=== PATIENT | female | born 1980 | race Caucasian/White ===

== ENCOUNTER 2016-09-26 11:22 | Day surgery (SDC) | payer OTHER ==
[~2016-09-26] VITALS: Ht 168.9 cm; Wt 78.9 kg
[~2016-09-26 11:22] MED LIST: ATARAX,VISTARIL25 MG PO; ATARAX10 MG PO; CIPRO500 MG PO; ENDOCET 5-3251 EACH PO; ESCITALOPRAM OX20 MG PO; IBUPROFEN800 MG PO; LEXAPRO10 MG PO; LORCET 5-325 M1 EACH PO; MOBIC7.5 MG PO; NAPROSYN375 MG PO; PEN-VEE K,VEET500 MG PO; PRENATAL TABLE1 EAC3 PO; TYLENOL EXTRA500 MG PO; ULTRAM50 MG PO
== END 2016-09-26 13:11 | disposition home or self-care (01) ==
LOC: PAIN 11:22 → SDC 13:00 → PAIN 13:00
DX: M47.816 Spondylosis without myelopathy or radiculopathy, lumbar region (principal); F41.9 Anxiety disorder, unspecified; M51.26 Other intervertebral disc displacement, lumbar region; M79.1 Myalgia; J30.9 Allergic rhinitis, unspecified; G89.29 Other chronic pain; E66.3 Overweight; Z68.27 Body mass index [BMI] 27.0-27.9, adult
CPT/HCPCS: J1030; J2250; J3010; S0020

== ENCOUNTER 2016-10-03 10:33 | Day surgery (SDC) | payer OTHER ==
[~2016-10-03] VITALS: Ht 168.9 cm; Wt 78.9 kg
== END 2016-10-03 13:24 | disposition home or self-care (01) ==
LOC: PAIN 10:33 → SDC 11:45 → PAIN 11:45
DX: M51.16 Intervertebral disc disorders with radiculopathy, lumbar region (principal); M51.06 Intervertebral disc disorders with myelopathy, lumbar region; F41.8 Other specified anxiety disorders; E66.3 Overweight; Z68.27 Body mass index [BMI] 27.0-27.9, adult; Z79.891 Long term (current) use of opiate analgesic; Z79.899 Other long term (current) drug therapy
CPT/HCPCS: J1030; J2250; J3010; S0020

== ENCOUNTER 2016-10-20 10:05 | Emergency (ER) | payer OTHER ==
[~2016-10-20] VITALS: Ht 167.6 cm; Wt 82.3 kg
[2016-10-20 11:01] LABS: ADD MIUA? YES; BILIRUBIN NEGATIVE; BLOOD NEGATIVE; COLOR YELLOW ((YELLOW)); GLUCOSE (STRIP) NEGATIVE; KETONES NEGATIVE; LEUKOCYTES LARGE; NITRITE NEGATIVE; PROTEIN (STRIP) 100; UROBILINOGEN 0.2 MG/DL (0.2-1.0)
[2016-10-20 11:15] LABS: BACTERIA RARE /HPF; EPITHELIAL CELLS 1+ /HPF; MUCUS 2+ /LPF; RED BLOOD CELLS 0-5 /HPF (0-5); WHITE BLOOD CELLS 30-40 /HPF (0-5)
[2016-10-20 11:33] LABS: HEMATOCRIT 30.6 % (36.0-46.0); MCH 20.2 PG (29.0-34.0); MCHC 28.8 G/DL (30.0-36.0); MCV 70.3 FL (83-99); MEAN PLAT.VOLUME 11.4 uM^3 (9.5-12.4); PLATELET COUNT 246 K/uL (156-360); RBC DIS.WIDTH-CV 19.3 % (11.8-14.6); RBC DIS.WIDTH-SD 48.4 % (39-53); RED BLOOD COUNT 4.35 M/uL (3.80-5.20); WHITE BLOOD COUNT 4.9 K/uL (4.1-10.2)
[2016-10-20 11:38] LABS: CHLORIDE 107 mEq/L (99-109); POTASSIUM 3.5 mEq/L (3.7-5.4); SODIUM 136 mEq/L (136-147)
[2016-10-20 11:40] LABS: GLUCOSE 106 mg/dL (70-99)
[2016-10-20 11:41] LABS: ANION GAP 7 MEQ/L (2-14)
[2016-10-20 11:42] LABS: TOTAL BILIRUBIN 0.3 mg/dL (0.0-1.0)
[2016-10-20 11:43] LABS: ALKALINE PHOSPHATASE 84 IU/L (3-129)
[2016-10-20 11:44] LABS: GFR ESTIMATE (CALCULATED) > 59 mL/min/
[2016-10-20 11:45] LABS: UREA NITROGEN (BUN) 14 mg/dL (9-23)
[2016-10-20 11:47] LABS: LIPASE 18 U/L (1.0-51.0)
[2016-10-20 11:54] LABS: QUANTITATIVE HCG < 4.0 MIU/ML
[2016-10-20 12:30] VITALS: BP 141/80
[2016-10-20] MEDS ORDERED: OMEPRAZOLE40 M1 PO (12:35)
[2016-10-20] MEDS ORDERED: KEFLEX500 MG PO (12:35)
== END 2016-10-20 12:30 | disposition home or self-care (01) ==
LOC: EME 10:05
PROVIDERS: Physician Assistant
DX: N39.0 Urinary tract infection, site not specified (principal); R10.13 Epigastric pain
CPT/HCPCS: 74022; 76705; 80053; 81003; 83690; 84702; 85027; 87086; 99281; 99284

== ENCOUNTER 2016-11-27 11:34 | Day surgery (SDC) | payer OTHER ==
[~2016-11-27] VITALS: Ht 167.6 cm; Wt 79.4 kg
[~2016-11-27 11:34] MED LIST changes: +KEFLEX500 MG PO; +OMEPRAZOLE40 M1 PO
== END 2016-11-27 13:58 | disposition home or self-care (01) ==
LOC: PAIN 11:34 → SDC 12:45 → PAIN 12:45
PROC: 015B3ZZ Destruction of Lumbar Nerve, Percutaneous Approach (ICD-10-PCS; principal; 2016-11-27)
DX: M47.26 Other spondylosis with radiculopathy, lumbar region (principal); F41.9 Anxiety disorder, unspecified; G89.29 Other chronic pain; M51.26 Other intervertebral disc displacement, lumbar region; I10 Essential (primary) hypertension; F32.9 Major depressive disorder, single episode, unspecified; M19.90 Unspecified osteoarthritis, unspecified site
CPT/HCPCS: J1030; J2250; J3010; S0020

== ENCOUNTER 2016-12-04 12:35 | Day surgery (SDC) | payer OTHER | END 2016-12-04 15:03 | disposition home or self-care (01) | LOC: PAIN 12:35 → SDC 13:45 → PAIN 15:03 | DX: M47.26 Other spondylosis with radiculopathy, lumbar region (principal); M54.42 Lumbago with sciatica, left side; G89.29 Other chronic pain; F41.8 Other specified anxiety disorders; E66.3 Overweight; Z79.891 Long term (current) use of opiate analgesic | CPT/HCPCS: J1030; J2250; J3010; S0020 ==

== ENCOUNTER 2017-02-02 13:08 | Emergency (ER) | payer OTHER ==
[~2017-02-02] VITALS: Ht 168.9 cm; Wt 82.1 kg
[2017-02-02 16:32] VITALS: BP 108/81
== END 2017-02-02 16:36 | disposition home or self-care (01) ==
LOC: EME 13:08
DX: H10.9 Unspecified conjunctivitis (principal)
CPT/HCPCS: 99281; 99283

== ENCOUNTER 2017-02-18 02:46 | Emergency (ER) | payer OTHER ==
[~2017-02-18] VITALS: Ht 167.6 cm; Wt 82.3 kg
[2017-02-18] MEDS ORDERED: MOTRIN800 MG PO (04:47)
[2017-02-18 05:07] VITALS: BP 115/73
== END 2017-02-18 05:07 | disposition home or self-care (01) ==
LOC: EME 02:46
DX: S93.401A Sprain of unspecified ligament of right ankle, initial encounter (principal); X50.1XXA Overexertion from prolonged static or awkward postures, initial encounter
CPT/HCPCS: 73610

== ENCOUNTER 2017-02-24 10:30 | Emergency (ER) | payer OTHER ==
[~2017-02-24] VITALS: Ht 165.1 cm; Wt 81.0 kg
[~2017-02-24 10:30] MED LIST changes: +MOTRIN800 MG PO
[2017-02-24 11:08] LABS: ADD MIUA? YES; BILIRUBIN NEGATIVE; BLOOD SMALL; COLOR YELLOW ((YELLOW)); GLUCOSE (STRIP) NEGATIVE; KETONES 20; LEUKOCYTES SMALL; NITRITE NEGATIVE; PROTEIN (STRIP) 30; SPECIFIC GRAVITY 1.024 (1.000-1.030)
[2017-02-24 11:18] LABS: CHLORIDE 108 mEq/L (99-109); POTASSIUM 3.2 mEq/L (3.7-5.4); SODIUM 143 mEq/L (136-147)
[2017-02-24 11:19] LABS: GLUCOSE 99 mg/dL (70-99)
[2017-02-24 11:21] LABS: ANION GAP 11 MEQ/L (2-14)
[2017-02-24 11:23] LABS: GFR ESTIMATE (CALCULATED) > 59 mL/min/
[2017-02-24 11:24] LABS: UREA NITROGEN (BUN) 11 mg/dL (9-23)
[2017-02-24 11:25] LABS: HEMATOCRIT 26.9 % (36.0-46.0); MCH 18.8 PG (29.0-34.0); MCHC 27.5 G/DL (30.0-36.0); MCV 68.3 FL (83-99); MEAN PLAT.VOLUME 10.9 uM^3 (9.5-12.4); PLATELET COUNT 269 K/uL (156-360); RBC DIS.WIDTH-CV 18.6 % (11.8-14.6); RBC DIS.WIDTH-SD 45.4 % (39-53); RED BLOOD COUNT 3.94 M/uL (3.80-5.20); WHITE BLOOD COUNT 3.3 K/uL (4.1-10.2)
[2017-02-24 11:31] LABS: QUANTITATIVE HCG < 4.0 MIU/ML
[2017-02-24 11:34] LABS: EPITHELIAL CELLS 1+ /HPF; MUCUS 1+ /LPF
[2017-02-24 11:35] LABS: BACTERIA 1+ /HPF; CASTS NONE SEEN /LPF; CRYSTALS NONE SEEN; RED BLOOD CELLS 0-5 /HPF (0-5); WHITE BLOOD CELLS 0-5 /HPF (0-5)
[2017-02-24 12:00] VITALS: BP 130/70
== END 2017-02-24 12:00 | disposition home or self-care (01) ==
LOC: EME 10:30
PROVIDERS: Nurse Practitioner Family
DX: F43.0 Acute stress reaction (principal)
CPT/HCPCS: 80048; 81003; 84702; 85027; 99281; 99284

== ENCOUNTER 2017-03-25 04:16 | Observation (INO) | payer OTHER ==
[~2017-03-25] VITALS: Ht 165.1 cm; Wt 79.2 kg
[2017-03-25] VITALS (9 sets, daily range): BP systolic 106–151; BP diastolic 57–666
[2017-03-25 05:01] LABS: HEMATOCRIT 25.4 % (36.0-46.0); MCH 18.5 PG (29.0-34.0); MCV 66.1 FL (83-99); MEAN PLAT.VOLUME 10.9 uM^3 (9.5-12.4); PLATELET COUNT 275 K/uL (156-360); RBC DIS.WIDTH-CV 18.6 % (11.8-14.6); RBC DIS.WIDTH-SD 43.7 % (39-53); RED BLOOD COUNT 3.84 M/uL (3.80-5.20); WHITE BLOOD COUNT 3.7 K/uL (4.1-10.2)
[2017-03-25 05:11] LABS: CHLORIDE 106 mEq/L (99-109); POTASSIUM 3.7 mEq/L (3.7-5.4); SODIUM 139 mEq/L (136-147)
[2017-03-25 05:13] LABS: GLUCOSE 99 mg/dL (70-99)
[2017-03-25 05:14] LABS: ANION GAP 8 MEQ/L (2-14)
[2017-03-25 05:15] LABS: TOTAL BILIRUBIN 0.4 mg/dL (0.0-1.0)
[2017-03-25 05:16] LABS: TROP-I INTERPRETATION NEGATIVE; TROPONIN-I < 0.01 ng/mL (0.0-0.30)
[2017-03-25 05:17] LABS: ALKALINE PHOSPHATASE 81 IU/L (3-129); GFR ESTIMATE (CALCULATED) > 59 mL/min/
[2017-03-25 05:18] LABS: UREA NITROGEN (BUN) 14 mg/dL (9-23)
[2017-03-25 05:20] LABS: LIPASE 17 U/L (1.0-51.0)
[2017-03-25 05:26] LABS: QUANTITATIVE HCG < 4.0 MIU/ML
[2017-03-25 05:41] LABS: EOSINOPHIL (%) 2.2 % (0-5); EOSINOPHIL COUNT 0.1 K/uL (0-0.3); IMMATURE GRANULOCYTE (%) 0.3 % (0.0-0.7); INSTRUMENT ABS NEUTROPHIL CT 1.7 K/uL; LYMPHOCYTE COUNT 1.6 K/uL (1.0-2.8); MONOCYTE (%) 7.8 % (3-12); MONOCYTE COUNT 0.3 K/uL (0-0.8); NEUTROPHIL (%) 46.2 % (45-76); NEUTROPHIL COUNT 1.7 K/uL (1.8-6.4)
[2017-03-25 11:03] LABS: IRON 14 MCG/DL (35-150)
[2017-03-25] MEDS ORDERED: FERROUS SULFAT325 MG PO (11:14)
[2017-03-25 11:51] LABS: FERRITIN 5 NG/ML (10-291)
[2017-03-25] MEDS ORDERED: AFRIN,GENASAL D15 ML BOTH NARES (12:18)
[2017-03-25] MEDS ORDERED: NORCO 5/3251 TABLET PO (12:18)
[2017-03-25 13:09] LABS: HEMATOCRIT 29.4 % (36.0-46.0); MCH 19.8 PG (29.0-34.0); MCHC 28.9 G/DL (30.0-36.0); MCV 68.4 FL (83-99); MEAN PLAT.VOLUME 10.8 uM^3 (9.5-12.4); PLATELET COUNT 264 K/uL (156-360); RBC DIS.WIDTH-CV 20.2 % (11.8-14.6); RBC DIS.WIDTH-SD 48.7 % (39-53); WHITE BLOOD COUNT 3.8 K/uL (4.1-10.2)
[2017-03-25 13:24] LABS: PROLACTIN 14.7 NG/ML
== END 2017-03-25 14:25 | disposition home or self-care (01) ==
LOC: EME 04:16 → EDOF 06:20 → ENRESERV 06:21 → 5WEST 07:08
PROVIDERS: Emergency Medicine; Nurse Practitioner Adult Health; Physician Assistant Medical
PROC: 30233N1 Transfusion of Nonautologous Red Blood Cells into Peripheral Vein, Percutaneous Approach (ICD-10-PCS; principal; 2017-03-25)
DX: D50.9 Iron deficiency anemia, unspecified (principal); R07.81 Pleurodynia; D72.819 Decreased white blood cell count, unspecified; R10.11 Right upper quadrant pain; R10.31 Right lower quadrant pain; N83.202 Unspecified ovarian cyst, left side
CPT/HCPCS: 71020; 74176; 80053; 81003; 82607; 82728; 83540; 83690; 84146; 84443; 84466; 84484; 84702; 85025; 85027; 86850; 86900; 86901; 86920; 93005; G0378; P9016

== ENCOUNTER 2017-04-04 17:23 | Emergency (ER) | payer OTHER ==
[~2017-04-04] VITALS: Ht 165.1 cm; Wt 80.1 kg
[~2017-04-04 17:23] MED LIST changes: +AFRIN,GENASAL D15 ML BOTH NARES; +FERROUS SULFAT325 MG PO; +NORCO 5/3251 TABLET PO
[2017-04-04 18:11] LABS: POINT-OF-CARE METER ID UU13113800
[2017-04-04 19:31] VITALS: BP 162/87
== END 2017-04-04 19:34 | disposition home or self-care (01) ==
LOC: EME 17:23
DX: M79.1 Myalgia (principal); M79.601 Pain in right arm
CPT/HCPCS: 82948; 93971; 99281; 99283

== ENCOUNTER 2017-04-08 20:41 | Inpatient (IN) | payer OTHER ==
[~2017-04-08] VITALS: Ht 165.1 cm; Wt 82.0 kg
[2017-04-08 21:18] LABS: HEMATOCRIT 35.1 % (36.0-46.0); MCH 21.5 PG (29.0-34.0); MCHC 29.6 G/DL (30.0-36.0); MCV 72.5 FL (83-99); MEAN PLAT.VOLUME 11.5 uM^3 (9.5-12.4); PLATELET COUNT 195 K/uL (156-360); RBC DIS.WIDTH-CV 24.1 % (11.8-14.6); RBC DIS.WIDTH-SD 59.1 % (39-53); RED BLOOD COUNT 4.84 M/uL (3.80-5.20); WHITE BLOOD COUNT 4.2 K/uL (4.1-10.2)
[2017-04-08 21:25] LABS: CHLORIDE 106 mEq/L (99-109); POTASSIUM 3.8 mEq/L (3.7-5.4); SODIUM 139 mEq/L (136-147)
[2017-04-08 21:27] LABS: GLUCOSE 97 mg/dL (70-99)
[2017-04-08 21:28] LABS: ANION GAP 12 MEQ/L (2-14)
[2017-04-08 21:29] LABS: TOTAL BILIRUBIN 0.3 mg/dL (0.0-1.0)
[2017-04-08 21:30] LABS: ALKALINE PHOSPHATASE 90 IU/L (3-129)
[2017-04-08 21:31] LABS: GFR ESTIMATE (CALCULATED) > 59 mL/min/
[2017-04-08 21:32] LABS: UREA NITROGEN (BUN) 11 mg/dL (9-23)
[2017-04-08 21:40] LABS: QUANTITATIVE HCG < 4.0 MIU/ML
[2017-04-08 22:21] LABS: LIPASE 28 U/L (1.0-51.0)
[2017-04-09 03:00] VITALS: BP 117/68
[2017-04-09 06:08] LABS: MCH 20.5 PG (29.0-34.0); MCHC 28.2 G/DL (30.0-36.0); MCV 72.7 FL (83-99); PLATELET COUNT 170 K/uL (156-360); RBC DIS.WIDTH-CV 24.2 % (11.8-14.6); RBC DIS.WIDTH-SD 59.1 % (39-53); RED BLOOD COUNT 4.54 M/uL (3.80-5.20); WHITE BLOOD COUNT 6.5 K/uL (4.1-10.2)
[2017-04-09 06:32] LABS: ANION GAP 6 MEQ/L (2-14); CHLORIDE 109 MEQ/L (99-109); GFR ESTIMATE (CALCULATED) > 59 mL/min/; GLUCOSE 97 mg/dL (70-99); POTASSIUM 4.2 MEQ/L (3.7-5.4); SAMPLE HEMOLYSIS CHECK 0; SAMPLE ICTERIC CHECK 0; SAMPLE LIPEMIA CHECK 0; SODIUM 140 MEQ/L (136-147); UREA NITROGEN (BUN) 8 mg/dL (9-23)
[2017-04-09 08:00] VITALS: BP 111/68
[2017-04-09] MEDS ORDERED: ULTRAM50 MG PO (11:26)
== END 2017-04-09 12:37 | disposition home or self-care (01) | DRG 343 ==
LOC: EME 20:41 → 2SOUTH 23:51 → ENRESERV 23:52 → EME 04-09 00:37 → ENRESERV 04-09 01:02 → 2EASTP 04-09 02:48
PROVIDERS: Surgery
PROC: 0DTJ4ZZ Resection of Appendix, Percutaneous Endoscopic Approach (ICD-10-PCS; principal; 2017-04-09)
DX: K35.80 Unspecified acute appendicitis (principal); D64.9 Anemia, unspecified; F41.9 Anxiety disorder, unspecified; F32.9 Major depressive disorder, single episode, unspecified; G47.9 Sleep disorder, unspecified; E66.9 Obesity, unspecified; Z68.30 Body mass index [BMI] 30.0-30.9, adult; Z23 Encounter for immunization
CPT/HCPCS: 74177; 80048; 80053; 81003; 83690; 84702; 85027; 88304; 88305; 90686; 93971; 99281; 99285; J1170; J3010; J7040; J7120; S0074

== ENCOUNTER 2017-05-08 13:51 | Emergency (ER) | payer OTHER ==
[~2017-05-08] VITALS: Ht 165.1 cm; Wt 80.6 kg
[2017-05-08 15:11] LABS: CHLORIDE 107 mEq/L (99-109); POTASSIUM 4.1 mEq/L (3.7-5.4); SODIUM 139 mEq/L (136-147)
[2017-05-08 15:13] LABS: GLUCOSE 101 mg/dL (70-99)
[2017-05-08 15:16] LABS: CREATININE 0.7 mg/dL (0.6-1.3); GFR ESTIMATE (CALCULATED) > 59 mL/min/
[2017-05-08 15:17] LABS: UREA NITROGEN (BUN) 15 mg/dL (9-23)
[2017-05-08 15:21] LABS: BASOPHIL (%) 0.5 % (0-1); EOSINOPHIL COUNT 0.2 K/uL (0-0.3); HEMATOCRIT 38.4 % (36.0-46.0); HEMOGLOBIN 11.9 G/DL (11.9-15.5); IMMATURE GRANULOCYTE (%) 0.3 % (0.0-0.7); LYMPHOCYTE (%) 31.4 % (15-42); LYMPHOCYTE COUNT 1.3 K/uL (1.0-2.8); MCH 24.4 PG (29.0-34.0); MCV 78.7 FL (83-99); MONOCYTE (%) 7.8 % (3-12); MONOCYTE COUNT 0.3 K/uL (0-0.8); NEUTROPHIL COUNT 2.2 K/uL (1.8-6.4); PLATELET COUNT 166 K/uL (156-360); RED BLOOD COUNT 4.88 M/uL (3.80-5.20)
[2017-05-08 15:42] LABS: ANISOCYTOSIS 2+; HYPOCHROMASIA 1+; MICROCYTOSIS 2+; OVALOCYTES 1+; PLAT.SUFFICIENCY ADEQUATE
[2017-05-08 16:47] LABS: QUANTITATIVE HCG < 4.0 MIU/ML
[2017-05-08 17:30] VITALS: BP 130/77
== END 2017-05-08 18:00 | disposition home or self-care (01) ==
LOC: EME 13:51
PROVIDERS: Nurse Practitioner Family
DX: R53.83 Other fatigue (principal); D64.9 Anemia, unspecified; F41.9 Anxiety disorder, unspecified; F32.9 Major depressive disorder, single episode, unspecified
CPT/HCPCS: 80048; 84702; 85025; 99281; 99284

== ENCOUNTER 2017-05-12 12:10 | Emergency (ER) | payer OTHER ==
[~2017-05-12] VITALS: Ht 165.1 cm; Wt 81.9 kg
[2017-05-12] MEDS ORDERED: TESSALON200 MG PO (14:34)
[2017-05-12 14:59] VITALS: BP 123/87
== END 2017-05-12 14:59 | disposition home or self-care (01) ==
LOC: EME 12:10
DX: J06.9 Acute upper respiratory infection, unspecified (principal); F32.9 Major depressive disorder, single episode, unspecified; Z88.8 Allergy status to other drugs, medicaments and biological substances
CPT/HCPCS: 99281; 99283

== ENCOUNTER 2017-07-31 02:24 | Emergency (ER) | payer OTHER ==
[~2017-07-31] VITALS: Ht 165.1 cm; Wt 85.7 kg
[~2017-07-31 02:24] MED LIST changes: +TESSALON200 MG PO
[2017-07-31 03:12] LABS: HEMOGLOBIN 12.6 G/DL (11.9-15.5); MCH 27.7 PG (29.0-34.0); MCHC 33.2 G/DL (30.0-36.0); MCV 83.5 FL (83-99); PLATELET COUNT 185 K/uL (156-360); RBC DIS.WIDTH-CV 13.6 % (11.8-14.6); RBC DIS.WIDTH-SD 40.5 % (39-53); RED BLOOD COUNT 4.55 M/uL (3.80-5.20); WHITE BLOOD COUNT 4.8 K/uL (4.1-10.2)
[2017-07-31 03:25] LABS: ALBUMIN 3.9 g/dL (3.2-4.8)
[2017-07-31 03:26] LABS: CHLORIDE 105 mEq/L (99-109); POTASSIUM 3.9 mEq/L (3.7-5.4); SODIUM 137 mEq/L (136-147)
[2017-07-31 03:28] LABS: GLUCOSE 112 mg/dL (70-99); TOTAL PROTEIN 8.4 g/dL (6.4-8.3)
[2017-07-31 03:30] LABS: TOTAL BILIRUBIN 0.3 mg/dL (0.0-1.0)
[2017-07-31 03:31] LABS: ALKALINE PHOSPHATASE 87 IU/L (3-129)
[2017-07-31 03:32] LABS: CREATININE 0.8 mg/dL (0.6-1.3); GFR ESTIMATE (CALCULATED) > 59 mL/min/
[2017-07-31 03:33] LABS: AST (GOT) 33 IU/L (2-34); UREA NITROGEN (BUN) 19 mg/dL (9-23)
[2017-07-31 03:35] LABS: ALT (GPT) 26 IU/L (3-49)
[2017-07-31 03:42] LABS: QUANTITATIVE HCG < 4.0 MIU/ML
[2017-07-31 06:38] LABS: APPEARANCE CLOUDY ((CLEAR)); BILIRUBIN NEGATIVE; BLOOD LARGE; COLOR YELLOW ((YELLOW)); GLUCOSE (STRIP) NEGATIVE; KETONES NEGATIVE; LEUKOCYTES LARGE; NITRITE NEGATIVE; PROTEIN (STRIP) 30; SPECIFIC GRAVITY 1.021 (1.000-1.030); UROBILINOGEN 0.2 MG/DL (0.2-1.0)
[2017-07-31 06:56] LABS: BACTERIA 1+ /HPF; EPITHELIAL CELLS 1+ /HPF; MUCUS 2+ /LPF; RED BLOOD CELLS 15-20 /HPF (0-5); UCUL ADDED? YES
[2017-07-31 09:03] LABS: BENZODIAZEPINES, URINE SCREEN Negative (200 ng/mL)
[2017-07-31 11:11] VITALS: BP 122/81
== END 2017-07-31 11:10 | disposition home or self-care (01) ==
LOC: EME 02:24
PROVIDERS: Emergency Medicine
DX: R42 Dizziness and giddiness (principal); R07.89 Other chest pain; N39.0 Urinary tract infection, site not specified
CPT/HCPCS: 71045; 80053; 80306 90; 81003; 84702; 85027; 85379; 87086; 93005; 99281; 99285; J7030

== ENCOUNTER 2017-08-11 02:43 | Emergency (ER) | payer OTHER ==
[~2017-08-11] VITALS: Ht 165.1 cm; Wt 92.1 kg
[2017-08-11 03:18] LABS: HEMATOCRIT 34.6 % (36.0-46.0); HEMOGLOBIN 11.9 G/DL (11.9-15.5); MCH 28.8 PG (29.0-34.0); MCHC 34.4 G/DL (30.0-36.0); MCV 83.8 FL (83-99); PLATELET COUNT 172 K/uL (156-360); RBC DIS.WIDTH-CV 13.8 % (11.8-14.6); RBC DIS.WIDTH-SD 42.2 % (39-53); RED BLOOD COUNT 4.13 M/uL (3.80-5.20); WHITE BLOOD COUNT 3.5 K/uL (4.1-10.2)
[2017-08-11 03:30] LABS: CHLORIDE 110 mEq/L (99-109); SODIUM 143 mEq/L (136-147)
[2017-08-11 03:31] LABS: GLUCOSE 100 mg/dL (70-99)
[2017-08-11 03:35] LABS: CREATININE 0.7 mg/dL (0.6-1.3); GFR ESTIMATE (CALCULATED) > 59 mL/min/
[2017-08-11 03:36] LABS: UREA NITROGEN (BUN) 18 mg/dL (9-23)
[2017-08-11 03:38] LABS: LIPASE 24 U/L (1.0-51.0); TROP-I INTERPRETATION NEGATIVE; TROPONIN-I < 0.01 ng/mL (0.0-0.30)
[2017-08-11 04:19] VITALS: BP 134/78
== END 2017-08-11 04:20 | disposition home or self-care (01) ==
LOC: EME → EDBD 02:43 → EME 02:43
PROVIDERS: Emergency Medicine
DX: M54.5 Low back pain (principal); F32.9 Major depressive disorder, single episode, unspecified; F41.9 Anxiety disorder, unspecified; Z88.8 Allergy status to other drugs, medicaments and biological substances
CPT/HCPCS: 80048; 81003; 83690; 84484; 85027; 93005; 99281; 99284

== ENCOUNTER 2017-09-14 02:35 | Emergency (ER) | payer OTHER ==
[~2017-09-14] VITALS: Ht 165.1 cm; Wt 88.9 kg
[2017-09-14] MEDS ORDERED: NORCO 5/3251 TABLET PO (04:32)
[2017-09-14] MEDS ORDERED: VALACYCLOVIR1000 MG PO (04:32)
[2017-09-14 04:43] VITALS: BP 123/67
== END 2017-09-14 04:44 | disposition home or self-care (01) ==
LOC: EME 02:35
DX: B02.9 Zoster without complications (principal); Z88.8 Allergy status to other drugs, medicaments and biological substances; F17.200 Nicotine dependence, unspecified, uncomplicated
CPT/HCPCS: 99281; 99283

== ENCOUNTER 2017-10-30 10:10 | Emergency (ER) | payer OTHER ==
[~2017-10-30] VITALS: Ht 165.1 cm; Wt 91.4 kg
[~2017-10-30 10:10] MED LIST changes: +VALACYCLOVIR1000 MG PO
[2017-10-30 11:05] LABS: BASOPHIL (%) 0.2 % (0-1); EOSINOPHIL (%) 1.5 % (0-5); EOSINOPHIL COUNT 0.1 K/uL (0-0.3); HEMATOCRIT 35.8 % (36.0-46.0); HEMOGLOBIN 12.2 G/DL (11.9-15.5); IMMATURE GRANULOCYTE (%) 0.2 % (0.0-0.7); LYMPHOCYTE (%) 35.6 % (15-42); LYMPHOCYTE COUNT 1.5 K/uL (1.0-2.8); MCH 28.7 PG (29.0-34.0); MCHC 34.1 G/DL (30.0-36.0); MCV 84.2 FL (83-99); MONOCYTE (%) 7.4 % (3-12); MONOCYTE COUNT 0.3 K/uL (0-0.8); NEUTROPHIL (%) 55.1 % (45-76); NEUTROPHIL COUNT 2.2 K/uL (1.8-6.4); PLATELET COUNT 164 K/uL (156-360); RBC DIS.WIDTH-CV 14.4 % (11.8-14.6); RBC DIS.WIDTH-SD 43.9 % (39-53); RED BLOOD COUNT 4.25 M/uL (3.80-5.20); WHITE BLOOD COUNT 4.1 K/uL (4.1-10.2)
[2017-10-30 11:13] LABS: CHLORIDE 111 mEq/L (99-109); POTASSIUM 3.3 mEq/L (3.7-5.4); SODIUM 142 mEq/L (136-147)
[2017-10-30 11:15] LABS: GLUCOSE 90 mg/dL (70-99); TOTAL PROTEIN 8.1 g/dL (6.4-8.3)
[2017-10-30 11:17] LABS: TOTAL BILIRUBIN 0.3 mg/dL (0.0-1.0)
[2017-10-30 11:19] LABS: ALKALINE PHOSPHATASE 89 IU/L (3-129); CREATININE 0.7 mg/dL (0.6-1.3); GFR ESTIMATE (CALCULATED) > 59 mL/min/
[2017-10-30 11:20] LABS: AST (GOT) 23 IU/L (2-34); UREA NITROGEN (BUN) 17 mg/dL (9-23)
[2017-10-30 11:22] LABS: ALT (GPT) 22 IU/L (3-49)
[2017-10-30 11:27] LABS: QUANTITATIVE HCG < 4.0 MIU/ML
[2017-10-30 13:36] VITALS: BP 117/80
== END 2017-10-30 13:36 | disposition home or self-care (01) ==
LOC: EME 10:10
PROVIDERS: Emergency Medicine
DX: N93.8 Other specified abnormal uterine and vaginal bleeding (principal); F17.200 Nicotine dependence, unspecified, uncomplicated
CPT/HCPCS: 76856; 80053; 81003; 84702; 85025; 86850; 86900; 86901; 99281; 99284; J7040

== ENCOUNTER 2017-12-18 21:01 | Emergency (ER) | payer OTHER ==
[~2017-12-18] VITALS: Ht 165.1 cm; Wt 87.1 kg
[2017-12-18] MEDS ORDERED: NAPROSYN500 MG PO (22:28)
[2017-12-19 00:14] VITALS: BP 152/89
== END 2017-12-19 00:16 | disposition home or self-care (01) ==
LOC: EME 21:01
DX: M25.532 Pain in left wrist (principal); M54.9 Dorsalgia, unspecified; G89.29 Other chronic pain; F17.200 Nicotine dependence, unspecified, uncomplicated; Z88.8 Allergy status to other drugs, medicaments and biological substances
CPT/HCPCS: 73110; 99281; 99284

== ENCOUNTER 2018-01-10 21:05 | Emergency (ER) | payer OTHER ==
[~2018-01-10] VITALS: Ht 165.1 cm; Wt 87.1 kg
[~2018-01-10 21:05] MED LIST changes: +NAPROSYN500 MG PO
[2018-01-10 22:15] LABS: HEMATOCRIT 39.4 % (36.0-46.0); MCH 27.5 PG (29.0-34.0); MCV 83.5 FL (83-99); PLATELET COUNT 182 K/uL (156-360); RBC DIS.WIDTH-CV 13.7 % (11.8-14.6); RBC DIS.WIDTH-SD 41.8 % (39-53); RED BLOOD COUNT 4.72 M/uL (3.80-5.20)
[2018-01-10 22:25] LABS: ALBUMIN 4.2 g/dL (3.2-4.8); CHLORIDE 107 mEq/L (99-109); POTASSIUM 4.2 mEq/L (3.7-5.4); SODIUM 140 mEq/L (136-147)
[2018-01-10 22:27] LABS: GLUCOSE 96 mg/dL (70-99)
[2018-01-10 22:28] LABS: TOTAL PROTEIN 8.4 g/dL (6.4-8.3)
[2018-01-10 22:29] LABS: TOTAL BILIRUBIN 0.7 mg/dL (0.0-1.0)
[2018-01-10 22:31] LABS: ALKALINE PHOSPHATASE 88 IU/L (3-129); CREATININE 0.8 mg/dL (0.6-1.3); GFR ESTIMATE (CALCULATED) > 59 mL/min/
[2018-01-10 22:32] LABS: UREA NITROGEN (BUN) 12 mg/dL (9-23)
[2018-01-10 22:33] LABS: AST (GOT) 26 IU/L (2-34)
[2018-01-10 22:34] LABS: ALT (GPT) 19 IU/L (3-49); CREATINE KINASE 88 IU/L (1-294)
[2018-01-10 22:40] LABS: QUANTITATIVE HCG < 4.0 MIU/ML
[2018-01-10 22:58] LABS: APPEARANCE SL.HAZY ((CLEAR)); BILIRUBIN NEGATIVE; BLOOD NEGATIVE; COLOR YELLOW ((YELLOW)); GLUCOSE (STRIP) NEGATIVE; KETONES 5; LEUKOCYTES LARGE; NITRITE NEGATIVE; PROTEIN (STRIP) 30; SPECIFIC GRAVITY 1.028 (1.000-1.030)
[2018-01-10 23:15] LABS: BACTERIA RARE /HPF; EPITHELIAL CELLS 1+ /HPF; MUCUS 2+ /LPF; UCUL ADDED? YES; WHITE BLOOD CELLS 20-30 /HPF (0-5)
[2018-01-10] MEDS ORDERED: KEFLEX500 MG PO (23:40)
[2018-01-11 00:12] VITALS: BP 118/77
== END 2018-01-11 00:14 | disposition home or self-care (01) ==
LOC: EME 21:05
DX: E86.0 Dehydration (principal); N39.0 Urinary tract infection, site not specified; M25.561 Pain in right knee; G89.29 Other chronic pain; F17.200 Nicotine dependence, unspecified, uncomplicated; Z88.8 Allergy status to other drugs, medicaments and biological substances
CPT/HCPCS: 73564; 80053; 81003; 82550; 84702; 85027; 99281; 99284; J7030